=== PATIENT | female | born 1990 | race Caucasian/White ===

== ENCOUNTER 2022-06-06 19:46 | Emergency (ER) | payer OTHER, SELFPAY ==
[2022-06-06 19:53] VITALS: BP 122/85; PULSE 86; TEMP 36.6; O2SAT 100; BMI 34.3
[2022-06-06 20:00] VITALS: PULSE 78
--- NOTE | 2022-06-06 20:16 | CRLHL7_ITS ---
For Patients: As a result of the Century Cures Act, medical imaging exams and procedure reports are released immediately into your electronic medical record. You may view this report before your referring provider. If you have questions, please contact your health care provider. INDICATION: Fall, ankle injury TECHNIQUE: Ankle radiograph 3 views COMPARISON: None FINDINGS: Bone: No acute fractures or aggressive bone lesions are identified. Joint: The ankle mortise joint and the visualized hindfoot joints are unremarkable in appearance. No significant ankle effusion is seen. Soft tissue: The Kager fat pad and the Achilles` tendon is normal in appearance. No radiopaque foreign bodies are seen. IMPRESSION: 1. No acute osseous injuries or abnormalities are noted. Dictated by: Jeffy Brannon MD @ 06/06/2022 21:23:51 (Electronically Signed)
--- NOTE | 2022-06-06 21:08 | ED_ITS ---
HPI - General Adult General Chief complaint: Extremity Pain/Injury, Lower Stated complaint: R ankle injury, happened at the gym Time Seen by Provider: 06/06/22 19:51 Source: patient Mode of arrival: ambulatory Limitations: no limitations History of Present Illness HPI narrative: 31-year-old female coming in today with an ankle injury. Patient does [employer] and she fell and her partner fell on top of her causing immediate pain and she felt a popping sensation of the right lateral ankle. She states that she can walk on it but is extremely painful. Denies any other injury. Related Data Home Medications Medication Instructions Recorded Confirmed No Known Home Medications 06/06/22 06/06/22 Allergies Allergy/AdvReac Type Severity Reaction Status Date / Time No Known Drug Allergies Allergy Verified 06/06/22 21:08 Review of Systems Status of ROS: Reports: 6 or more systems reviewed and unremarkable except as noted in History and below [facility] Medical History Herpes simplex vulvovaginitis ?A60.04 - Herpesviral vulvovaginitis (ICD-10) History of lipoma ?Z86.018 - Personal history of other benign neoplasm (ICD-10) Surgical History History of wisdom tooth extraction ?K08.409 - Partial loss of teeth, unspecified cause, unspecified class (ICD- 10) Social History Smoking Status: Never smoker Do you use any of these nicotine containing products: None How often do you have a drink containing alcohol: monthly or less How often do you have six or more drinks on one occasion: Never AUDIT-C Alcohol total score: 1 Non-prescribed substance use: denies use Exam Narrative: Exam Narrative: Right ankle has lateral swelling with mild tenderness just proximal to the lateral malleolus. She has no bony tenderness over the lateral malleolus. The remainder of the foot is normal. Normal DP and PT pulses. She has good range of motion at the ankle. No pain in the medial ankle or foot. Const: Vital Signs, click to edit/add: Vital Signs - 24 hr 06/06/22 19:53 06/06/22 20:00 06/06/22 21:24 Temperature 97.9 F 98.2 F Pulse Rate [Pulse Oximeter] 86 79 Pulse Rate [Right Dorsalis Pedis] 78 Respiratory Rate 18 Blood Pressure [Ri ght Upper Arm] 122/85 118/79 Pulse Oximetry 100 100 Oxygen Delivery Me thod Room Air Room Air Course Course Hospital Course: X-ray of the ankle was done, read by me, does not show any acute abnormalities. Vital Signs Vital signs: Initial Vital Signs Temperature 97.9 F 06/06/22 19:53 Temperature Source Temporal Artery Scan 06/06/22 19:53 Pulse Rate 86 06/06/22 19:53 Pulse Rhythm Regular 06/06/22 19:53 Blood Pressure 122/85 06/06/22 19:53 Blood Pressure Mean 97 06/06/22 19:53 Pulse Oximetry 100 06/06/22 19:53 Oxygen Delivery Method Room Air 06/06/22 19:53 Vital Signs Temperature 97.9 F 06/06/22 19:53 Pulse Rate 86 06/06/22 19:53 Blood Pressure 122/85 06/06/22 19:53 Pulse Oximetry 100 06/06/22 19:53 Oxygen Delivery Method Room Air 06/06/22 19:53 Temperature 98.2 F 06/06/22 21:24 Pulse Rate 79 06/06/22 21:24 Respiratory Rate 18 06/06/22 21:24 Blood Pressure 118/79 06/06/22 21:24 Pulse Oximetry 100 06/06/22 21:24 Oxygen Delivery Method Room Air 06/06/22 21:24 Medical Decision Making MDM Narrative Medical decision making narrative: 31-year-old female with an ankle injury, ankle sprain. We discussed symptomatic treatment. Imaging Data Ankle x-ray: Attestation: I have reviewed the pertinent imaging results. Radiologist's impression: TECHNIQUE: Ankle radiograph 3 views COMPARISON: None FINDINGS: Bone: No acute fractures or aggressive bone lesions are identified. Joint: The ankle mortise joint and the visualized hindfoot joints are unremarkable in appearance. No significant ankle effusion is seen. Soft tissue: The Kager fat pad and the Achilles` tendon is normal in appearance. No radiopaque foreign bodies are seen. IMPRESSION: 1. No acute osseous injuries or abnormalities are noted. Discharge Plan Discharge Clinical Impression: Ankle sprain and strain Patient Disposition: Home, Self-Care Condition: Stable Additional Instructions: Elevate and ice the ankle today. Ice for 20 minutes at a time. Do not apply ice directly to skin. Activity as tolerated. Recommend gentle ankle stretching and gffsm-yw-[id number] exercises multiple times per day. Wear ankle brace as needed for stability. Prescriptions: No Action No Known Home Medications Follow Up/Referrals: Provider,Not a Local [Primary Care Provider] - Stand Alone Forms: [facility] Info Instructions
[2022-06-06 21:24] VITALS: BP 118/79; PULSE 79; RESP 18; TEMP 36.8; O2SAT 100
[2022-06-06 21:38] VITALS: BP 118/79; PULSE 79; RESP 18; TEMP 36.8
--- NOTE | 2022-06-06 21:39 | ED.NURSE ---
pt refused ankle brace, education provided.
--- NOTE | 2022-06-06 21:42 | ED.NURSE ---
pt. refused air cast for ankle. notified.
== END 2022-06-06 21:30 | disposition home or self-care (01) ==
PROVIDERS: Emergency Provider Family Medicine
DX: S93.401A Sprain of unspecified ligament of right ankle, initial encounter (principal); W50.0XXA Accidental hit or strike by another person, initial encounter; Y93.75 Activity, martial arts
CPT/HCPCS: 73610; 99283; 99284

== ENCOUNTER 2023-12-20 20:03 | Emergency (ER) | payer OTHER, SELFPAY ==
[2023-12-20 20:09] VITALS: BP 121/83; PULSE 77; RESP 20; TEMP 36.9; O2SAT 99; BMI 32.4
--- NOTE | 2023-12-20 20:36 | ED.SKABFB ---
HPI - Skin/Abscess/Foreign Bdy General Date Seen: 12/20/23 Chief complaint: Skin/Abscess/Foreign Body Stated complaint: infected pimple Time Seen by Provider: 12/20/23 20:05 Source: patient Mode of arrival: ambulatory Limitations: no limitations History of Present Illness HPI narrative: Her the patient is a 33-year-old female presenting to the emergency department for he an abscess on her posterior right hip. She states she has had a pimple there for couple months and has been staying the same size until it recently started growing. Does have history of pimples on her back before but never in this spot and has never had 1 nearly this big. Denies fevers, chills, weakness, numbness. She has no other concerns at this time. Related Data Home Medications ?Medication ?Instructions ?Recorded ?Confirmed valacyclovir 500 mg tablet 500 mg PO DAILY 12/20/23 12/20/23 Previous Rx's ?Medication ?Instructions ?Recorded sulfamethoxazole 800 1 tab PO BID #10 tabs 12/20/23 mg-trimethoprim 160 mg tablet (Bactrim DS) Allergies Allergy/AdvReac Type Severity Reaction Status Date / Time No Known Drug Allergies Allergy Verified 12/20/23 20:11 Review of Systems Narrative: Pertinent systems reviewed and were negative unless stated in HPI PFSH PFSH Medical History Herpes simplex vulvovaginitis ?A60.04 - Herpesviral vulvovaginitis (ICD-10) History of lipoma ?Z86.018 - Personal history of other benign neoplasm (ICD-10) Surgical History History of wisdom tooth extraction ?K08.409 - Partial loss of teeth, unspecified cause, unspecified class (ICD-10) Social History Smoking Status: Never smoker Do you use any of these nicotine containing products: None How often do you have a drink containing alcohol: monthly or less How often do you have six or more drinks on one occasion: Never AUDIT-C Alcohol total score: 1 Non-prescribed substance use: denies use Exam Narrative: Exam Narrative: Const: Well-nourished, Well-developed, in mild distress Eyes: PERRL, no conjunctival injection, and symmetrical lids HENT: Atraumatic external nose and ears. Moist mucous membranes. Skin: 2 cm sized abscess to posterior right hip. Neuro: Normal Muscle tone, No focal neurological deficits. Psych: Awake, Alert, & Oriented x3. Appropriate mood and affect. Const: Vital Signs, click to edit/add: Vital Signs - 24 hr 12/20/23 20:09 Temperature 98.5 F Pulse Rate [Right Pulse Oximeter] 77 Respiratory Rate 20 Blood Pressure [Le ft Upper Arm] 121/83 Pulse Oximetry 99 Oxygen Delivery Me thod Room Air Course Vital Signs Vital signs: Initial Vital Signs Temperature 98.5 F 12/20/23 20:09 Temperature Source Temporal Artery Scan 12/20/23 20:09 Pulse Rate 77 12/20/23 20:09 Respiratory Rate 20 12/20/23 20:09 Blood Pressure 121/83 12/20/23 20:09 Blood Pressure Mean 95 12/20/23 20:09 Blood Pressure Position Sitting 12/20/23 20:09 Pulse Oximetry 99 12/20/23 20:09 Oxygen Delivery Method Room Air 12/20/23 20:09 Vital Signs Temperature 98.5 F 12/20/23 20:09 Pulse Rate 77 12/20/23 20:09 Respiratory Rate 20 12/20/23 20:09 Blood Pressure 121/83 12/20/23 20:09 Pulse Oximetry 99 12/20/23 20:09 Oxygen Delivery Method Room Air 12/20/23 20:09 Temperature 98.5 F 12/20/23 20:09 Pulse Rate 77 12/20/23 20:09 Respiratory Rate 20 12/20/23 20:09 Blood Pressure 121/83 12/20/23 20:09 Pulse Oximetry 99 12/20/23 20:09 Oxygen Delivery Method Room Air 12/20/23 20:09 MDM - Skin/Abscess/Foreign Bdy MDM Narrative Medical decision making narrative: Patient is a 33-year-old female presenting for an abscess. I did do a quick ultrasound to make sure it is a simple abscess which it does appear to be. I and D was done and wound culture performed. She tolerated this procedure well. Will place her on Bactrim for 5 days b.i.d. no other concerns noted Discharge Plan Discharge Clinical Impression: Abscess Patient Disposition: Home, Self-Care Condition: Stable Instructions: Abscess (ED) Additional Instructions: Take the antibiotics as directed. Return to emergency department for new worsening symptoms. Prescriptions: New sulfamethoxazole-trimethoprim [Bactrim DS] 800-160 mg tablet 1 tab PO BID Qty: 10 0RF No Action valacyclovir 500 mg tablet 500 mg PO DAILY Follow Up/Referrals: Provider,Not a Local [Primary Care Provider] - Stand Alone Forms: [facility] Info Instructions Procedures I/D Type: abscess Site: back (Posterior right hip) Pre procedure diagnosis: Abscess Post procedure diagnosis: Abscess Anesthesia I&D: lidocaine 2% Amount of anesthesia used (mls): 2 Side (if applicable): right Technique: incised with #11 blade Amount of fluid expressed (mL): 10 Irrigation: No Packing used?: none Conclusion: patient tolerated procedure
[2023-12-20 20:54] VITALS: BP 118/78; PULSE 74; RESP 20; TEMP 36.9; O2SAT 99
[2023-12-20 20:56] VITALS: BP 118/78; PULSE 74; RESP 20; TEMP 36.9
== END 2023-12-20 20:56 | disposition home or self-care (01) ==
LOC: ED 20:48
PROVIDERS: Emergency Provider Student in an Organized Health Care Education/Training Program
DX: L02.415 Cutaneous abscess of right lower limb (principal)
CPT/HCPCS: 10060; 87070; 99282; 99283